=== PATIENT | female | born 1990 | race Caucasian/White ===

== ENCOUNTER 2017-05-16 03:13 | Inpatient (IN) ==
[2017-05-16] MEDS ORDERED: *HR* Labetalol 20 MG/4 ML SYRINGE IVP ONE ×2 (03:39→04:00)
[2017-05-16 03:50] LABS: Basophils % 0.6 %; Eosinophils # 0.1 K/mcL (0.0-0.6); Hematocrit 36.1 % (35.3-44.9); Immature Granulocytes % 0.7 % (0-4); Lymphocytes # 1.7 K/mcL (0.6-4.6); Lymphocytes % 23.3 %; Mean Corpuscular HGB Conc 33.2 g/dL (31.6-35.5); Mean Corpuscular Hemoglobin 29.4 pg (28.0-33.3); Mean Corpuscular Volume 88.5 fL (83.0-100.0); Monocytes # 0.7 K/mcL (0.0-1.3); Monocytes % 9.3 %; Neutrophils # 4.6 K/mcL (1.6-8.9); Platelet Count 225 K/mcL (140-400); Red Blood Count 4.08 M/mcL (3.82-4.97); Red Cell Distribution Width 14.1 % (11.5-14.5); Segmented Neutrophils % 65.1 %
[2017-05-16 04:03] LABS: Alanine Aminotransferase 12 Units/L (0-55); Aspartate Amino Transferase 14 Units/L (5-34); BUN/Creatinine Ratio 15 (6-26); Blood Urea Nitrogen 12 mg/dL (7-20); Lactate Dehydrogenase 171 Units/L (159-327); Uric Acid 4.3 mg/dL (2.6-6.0); eGFR For African Americans > 60 (> 60); eGFR For Non-African Americans > 60 (> 60)
[2017-05-16] MEDS ORDERED: Calcium Gluconate 1,000 MG/10 ML VIAL IVPB PRN (04:03)
[2017-05-16] MEDS ORDERED: Naloxone 0.4 MG/ML INJ IVP PRN ×2 (04:05→14:07)
[2017-05-16] MEDS ORDERED: Ondansetron 4 MG/2 ML VIAL IVP PRN ×2 (04:05→14:07)
[2017-05-16] MEDS ORDERED: *HR* Nalbuphine 20 MG/ML AMPUL IVP PRN (04:05)
[2017-05-16] MEDS ORDERED: Metoclopramide 10 MG/2 ML VIAL IVP PRN (04:05)
[2017-05-16] MEDS ORDERED: Famotidine 20 MG/2 ML VIAL IVP PRN (04:05)
[2017-05-16] MEDS ORDERED: Ringers Solution, Lactated 1,000 ML ONE ×2 (04:16→14:11)
--- NOTE | 2017-05-16 04:34 | OB/GYN History & Physical ---
Date of Encounter: 05/16/17 Time of Encounter: 04:32 Assessment and Plan (1) 36 weeks gestation of Current visit: Yes Status: Acute Admit for hypertension evaluation (2) Pre-eclampsia during in third trimester, antepartum Current visit: Yes Status: Acute Admit for induction of labor due to elevated blood pressures. (3) Oligohydramnios in marques in third trimester Current visit: Yes Status: Acute Admit for delivery. (4) Rubella non-immune status, antepartum Current visit: Yes Status: Acute Vaccinate History of Present Illness Chief complaint: Migraine, 36w5d HPI: Ms. Serna is a 27 year old female at 36w5d who was admitted due to elevated blood pressures and migraine headache. Patient reports positive movement, denies bleeding and leakage of fluid. Patient reports her headache started yesterday and she took Tylenol multiple times throughout the day. She states that the Tylenol would help for a while and then the headache would come right back. She states she woke up at 0100 with a migraine so she came in. Patient reports she had headache symptoms with her previous pregnancies but was not treated with medication or induced early. Blood Type O+ GBS Negative HbSAG Negative Rubella Non-Immune Varicella Immune T.Pallidum Negative Past Med Surg Social Fam HX - Past Medical History Source: patient Medical history: hypertension Psychiatric history: no psych history - Past Surgical History Surgical History: other (Dilatation and curettage, colposcopy) - Social History Smoking Status: Never smoker Smokeless Tobacco Status: No Alcohol use: none Drug use: none Current living situation: Home - Independent Activity Level: Independent ambulation Recent Out of Country Travel Within the Last 8 Weeks: No Exposure or Possible Exposure to Illness During Travel: No - Family History Mother Living Status: Still Living Hx Family Cardiac Disorders: No Hx Family Respiratory Disorders: No Hx Family Cancer: No Hx Family GI Disorders: No Hx Family Endocrine Disorder: No Hx Family Neuromuscular Disorders: No Hx Family Neurologic Disorders: No Hx Family HEENT Disorders: No Hx Family Autoimmune Disorders: No Obstetrical History - Pregnancies : 3 Para: 2 Term: 2 : 0 Ab's: 0 Livin Medications and Allergies Labetalol 200 mg PO BID 03/19/15 [History] Vit/FA 1 tab PO DAILY 03/19/15 [History] Docusate [Colace] 100 mg PO BID 30 Days capsule 03/20/15 [Rx] Ferrous Sulfate 325 mg PO DAILY 30 Days tablet 03/20/15 [Rx] Ibuprofen [Motrin] 600 mg PO TID PRN #60 tablet 03/20/15 [Rx] Labetalol [Trandate] 200 mg PO BID 30 Days tablet 03/20/15 [Rx] Pramoxine HCl [Dermarest Eczema] 56.7 gm TP QID PRN #120 ml 03/16/16 [Rx] cephALEXin [Keflex] 500 mg PO QID 7 Days capsule 03/16/16 [Rx] hydrOXYzine pamoate [HydrOXYzine Pamoate] 25 mg PO TID PRN 4 Days capsule 03/16 [Rx] predniSONE [PredniSONE] 5 mg PO DAILY 12 Days tablet 03/16/16 [Rx] GuaiFENesin ER [Mucinex] 600 mg PO BID #20 tbbp.12hr 06/14/16 [Rx] Loratadine/Pseudophed (12 HR) [Claritin D (12HR)] 1 each PO BID #30 tab.er.12h 06/14/16 [Rx] Ondansetron HCl [Zofran] 4 mg PO Q8H PRN #10 tablet 07/03/16 [Rx] Vit No.124/Iron/FA [ Vitamin Tablet] 1 each PO DAILY #90 tablet 09/30/16 [Rx] Promethazine [Phenergan] 25 mg PO Q6HR PRN #10 tablet 09/30/16 [Rx] Oseltamivir [Tamiflu] 75 mg PO BID 5 Days capsule 10/18/16 [Rx] Amoxicillin 875 mg PO BID #14 tablet 01/13/17 [Rx] 3 Allergy/AdvReac Type Severity Reaction Status Date / Time No Known Allergies Allergy Verified 05/16/17 04:01 Review of System OB All systems PM: reviewed and no additional remarkable complaints except as stated - Constitutional Constitutional ROS IM: no chills, no fever(s) - Neurological Nerological: headache(s) Exam - Constitutional Constitutional: well developed, well nourished, no acute distress - Neck Neck exam: full ROM - Lungs Respiratory exam: CTAB - Cardiovascular Cardiovascular exam: RRR, +S1, +S2 - Abdomen Abdomen: Present: bowel sounds normal, gravid, non tender - Extremities Extremities exam: full ROM, normal capillary refill, normal inspection Deep Tendon Reflex Grade: 2+ Normal - Vulva Vulva: bilateral: normal - Vagina Vagina: Present: normal moisture - Cervix Dilation: 1 Effacement: 50 Station: -3 - Uterus Uterus exam: Present: normal size - Anus/Rectum Anus/Rectum: Present: normal perianal skin - Comments Comments: FHR 135 bpm, moderate variability, +15x15 accels, no decels. Category I tracing. Results Result Diagrams: 05/16/17 03:35 05/16/17 03:35 All other labs normal.
[2017-05-16] MEDS ORDERED: Betamethasone Acet/SodPhos 6 MG/ML MDV IM SCH (04:45)
[2017-05-16] MEDS ORDERED: Oxytocin 20 units/ LR 1000 mL 20 UNIT/1,000 ML BAG IVC ONE (04:51)
[2017-05-16 04:55] LABS: Protein/Creatinine Ratio,Urine 0.2 mg/mg (0-0.20)
[2017-05-16] MEDS ORDERED: Oxytocin 20 units/ LR 1000 mL 20 UNIT/1,000 ML BAG IVC SCH ×2 (05:00→21:17)
[2017-05-16 05:04] LABS: Amphetamine Screen,Urine Negative ng/mL (Cutoff=1000); Barbiturate Screen,Urine Negative ng/mL (Cutoff=200); Benzodiazepines Screen,Urine Negative ng/mL (Cutoff=200); Cannabinoid Screen,Urine Negative ng/mL (Cutoff = 50); Cocaine Screen,Urine Negative ng/mL (Cutoff= 300); Opiate Screen,Urine Negative ng/mL (Cutoff=300); Phencyclidine Screen,Urine Negative ng/mL (Cutoff=25)
[2017-05-16] MEDS: Magnesium Sulfate 20 gm/500mL 20 GM/500 ML IV.SOLN IVC SCH ×2 (05:24→14:14)
--- NOTE | 2017-05-16 05:35 | Anesthesia Evaluation PreOp ---
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 Other Medical History: Denies Any Significant HX Anesthesia History: No Prior Anesthetic Complications (2 epidurals in past, one was okay and one unilateral epidural) Alcohol Use: none Drug use: none Medications and Allergies Labetalol 200 mg PO BID 03/19/15 [History] Vit/FA 1 tab PO DAILY 03/19/15 [History] Docusate [Colace] 100 mg PO BID 30 Days capsule 03/20/15 [Rx] Ferrous Sulfate 325 mg PO DAILY 30 Days tablet 03/20/15 [Rx] Ibuprofen [Motrin] 600 mg PO TID PRN #60 tablet 03/20/15 [Rx] Labetalol [Trandate] 200 mg PO BID 30 Days tablet 03/20/15 [Rx] Pramoxine HCl [Dermarest Eczema] 56.7 gm TP QID PRN #120 ml 03/16/16 [Rx] cephALEXin [Keflex] 500 mg PO QID 7 Days capsule 03/16/16 [Rx] hydrOXYzine pamoate [HydrOXYzine Pamoate] 25 mg PO TID PRN 4 Days capsule 03/16 [Rx] predniSONE [PredniSONE] 5 mg PO DAILY 12 Days tablet 03/16/16 [Rx] GuaiFENesin ER [Mucinex] 600 mg PO BID #20 tbbp.12hr 06/14/16 [Rx] Loratadine/Pseudophed (12 HR) [Claritin D (12HR)] 1 each PO BID #30 tab.er.12h 06/14/16 [Rx] Ondansetron HCl [Zofran] 4 mg PO Q8H PRN #10 tablet 07/03/16 [Rx] Vit No.124/Iron/FA [ Vitamin Tablet] 1 each PO DAILY #90 tablet 09/30/16 [Rx] Promethazine [Phenergan] 25 mg PO Q6HR PRN #10 tablet 09/30/16 [Rx] Oseltamivir [Tamiflu] 75 mg PO BID 5 Days capsule 10/18/16 [Rx] Amoxicillin 875 mg PO BID #14 tablet 01/13/17 [Rx] 3 Allergy/AdvReac Type Severity Reaction Status Date / Time No Known Allergies Allergy Verified 05/16/17 04:01 Anesthesia Results - Labs 05/16/17 03:35 05/16/17 03:35 Anesthesia Exam - HEENT Pupil (Motor): Pupils equal Mallampati: II Teeth: Normal Oral Opening: Greater than 3 - 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
[2017-05-16] MEDS ORDERED: Acetaminophen 325 MG TABLET PO PRN ×2 (07:29→21:17)
[2017-05-16] MEDS ORDERED: miSOPROStol 100 MCG TABLET PO ONE (08:00)
[2017-05-16] MEDS ORDERED: Methylergonovine 0.2 MG/ML AMPUL IM ONE (08:00)
--- NOTE | 2017-05-16 10:26 | OB Labor Progress Note ---
Date of Encounter: 05/16/17 Time of Encounter: 10:24 Labor Progress Note - Subjective Subjective: Pt states is feeling some contractions and they are starting to be uncomfortable - Vital Signs Vital Signs: 136/92 - Cervix Cervix: 1/50/-2 - Heart Tones Heart Tones: 135/moderate/+accels/-decels - Welby Welby: 3-4 - Interventions Interventions: Bills placed without incident - Plan Plan: Continue pitocin per policy. Magnesium for PIH Nubain and epidural as desired Anticipate
--- NOTE | 2017-05-16 12:22 | OB Labor Progress Note ---
Date of Encounter: 05/16/17 Time of Encounter: 12:20 Labor Progress Note - Subjective Subjective: Recent dose of nubain. Pt - Vital Signs Vital Signs: 107/56 - Cervix Cervix: 3/80/-2 - Heart Tones Heart Tones: 125/minimal/+accels/-decels.. - [place]: q2 - Interventions Interventions: AROM for clear fluid - Plan Plan: Continue pitocin per policy epidural as desired Continue magnesium and labetalol for PIH and BP mangement Anticipate .
[2017-05-16] MEDS ORDERED: *HR* FentaNYL (PF) 100 MCG/2 ML VIAL EP ONE (14:07)
[2017-05-16] MEDS ORDERED: EPHEDrine 50 MG/ML VIAL IVP PRN (14:07)
[2017-05-16] MEDS ORDERED: Bupivacaine-MPF 0.25% 10 ML VIAL EP ONE (14:07)
[2017-05-16] MEDS ORDERED: Epidural Premix (fent/bupiv) 110 ML EP SCH (14:15)
[2017-05-16] MEDS ORDERED: Bupivacaine-MPF 0.25% 10 ML VIAL ONE (14:20)
[2017-05-16] MEDS ORDERED: *HR* FentaNYL (PF) 100 MCG/2 ML VIAL ONE (14:21)
[2017-05-16] MEDS ORDERED: Epidural Premix (fent/bupiv) 110 ML EP ONE (14:24)
--- NOTE | 2017-05-16 15:07 | Anesthesia Procedures ---
Date of Encounter: 05/16/17 Time of Encounter: 14:25 Procedures: Anesthesia - Epidural/Spinal Patient ID/Chart reviewed: Yes Patient examined: Yes OB Eval: Gestational age: 36.5 OB Eval: : 3 OB Eval: Hx Para: 2 OB Eval: Dilated at (cm): 7 OB Eval: Contractions: Non-stressed pattern Consent Obtained: Yes Supplemental Oxygen: None/Room Air Site Prep: Aseptic Technique, Sterile prep and drape, Povidone-Iodine 1% Patient position: upright Local Anesthetic: Lidocaine 1% Amount of Local Anesthetic used: 3 Touhy Needle Gauge: 18 Touhy Needle Depth (cm): 6 Catheter Depth at Skin (cm): 15 Test Dose (1.5% Lido + Epi): Volume given (mls): 3 Test Dose Result: Negative Loading Dose: 0.25% Marcaine (mls): 10 Loading Dose: Fentanyl (mcg): 100 Loading Dose Administered: Thru Catheter Infusion Med: 0.125% Bupivacaine w/ 2 mcg/ml Fentanyl Infusion Rate (mls/hr): [address]: Tegaderm, Tape Interspace Used: L3-L4 Loss of Resistance (JASMYNE): Yes Blood: No CSF: No Paresthesia: No Procedure: ROLLY placed 1st pass in upright position without any immediate noted complications. VSS throughout. FHT stable throughout. Vitals + FHT's: 1426 BP 136/87 P 90 R 18 1455 BP 133/79 P 81 R 16 FHT 120s
--- NOTE | 2017-05-16 15:54 | OB/GYN Procedure Note ---
Delivery - Delivery Date: 05/16/17 Provider: Pat Marroquin (See addendum /Delano Kevin MD,FACOG) Intrapartum events: none Delivery induction: AROM, oxytocin, tucker Delivery monitor: external FHT, external uterine Anesthesia: epidural Estimated Blood Loss: 450 - Infant (s) Infant A Delivery Date: 05/16/17 Delivery Time: 15:10 Presentation: vertex Position: OA Route of delivery: Gender: Female Viability: Viable Weight Gram: 2.505 kg at 1 minute: 8 at 5 mins: 9 Shoulder Dystocia: not encountered Specimens collected: cord blood Placenta: spontaneous Cord: 3 umbilical vessels - Repair Episiotomy: none Laceration Description: Perineal - 1st Degree - Complications Delivery complications: none Delivery comments: Induction of labor for PIH with Pitocin. CNM called to room for prolonged bradycardia, vaginal exam shows patient complete. Dr. Kevin called to attend delivery Directed maternal bearing down efforts to of a liveborn girl. Vertex delivered OA, shoulders and body rapidly followed. No nuchal cord or shoulder dystocia encountered. Vigorous placed on maternal abdomen for stimulation, delayed cord clamping, cord cut by father of baby. Placenta delivered spontaneously, intact upon inspection. Uterine atony noted after delivery of placenta. Pitocin bolus initiated, called for hemorrhage kit, Bimanual massage performed. Cytotec 800 g rectally. Slow firming of fundus obtained until firm at u-3. First degree perineal laceration noted hemostatic and left unrepaired. EBL 450. - Disposition Mom disposition: stable in LDR Jay disposition: stable in LDR - Comments Comments: I was called by CNM to attend delivery. During the second stage of labor, significant bradycardia had occurred. I arrived in less than 1 minute. At that time, the had been delivered and placed on the mother's abdomen. With the situation being stable and no further intervention needed, I left the delivery suite.
[2017-05-16] MEDS ORDERED: Benzocaine/Menthol 56 GM AEROSOL SPRAY TP PRN (21:17)
[2017-05-16] MEDS ORDERED: Measles/Mumps/Rubella Vacc 0.5 ML VIAL SQ PRN (21:17)
[2017-05-16] MEDS ORDERED: Lanolin 7 G OINT...G. TP PRN (21:17)
[2017-05-16] MEDS: Ibuprofen 600 MG TABLET PO PRN (21:50)
[2017-05-17] MEDS: Magnesium Sulfate 20 gm/500mL 20 GM/500 ML IV.SOLN IVC SCH ×2 (02:27→13:02)
[2017-05-17 06:22] LABS: Basophils % 0.1 %; Eosinophils % 0.1 %; Hematocrit 30.5 % (35.3-44.9); Immature Granulocytes % 0.5 % (0-4); Lymphocytes # 1.1 K/mcL (0.6-4.6); Lymphocytes % 11.8 %; Mean Corpuscular HGB Conc 33.1 g/dL (31.6-35.5); Mean Corpuscular Hemoglobin 28.9 pg (28.0-33.3); Mean Corpuscular Volume 87.4 fL (83.0-100.0); Mean Platelet Volume 10.9 fL (9.4-12.4); Monocytes # 0.6 K/mcL (0.0-1.3); Monocytes % 6.2 %; Neutrophils # 7.8 K/mcL (1.6-8.9); Platelet Count 204 K/mcL (140-400); Red Blood Count 3.49 M/mcL (3.82-4.97); Red Cell Distribution Width 14.8 % (11.5-14.5); Segmented Neutrophils % 81.3 %
[2017-05-17 06:23] LABS: Hemoglobin 10.1 g/dL (11.5-15.4)
[2017-05-17 06:38] LABS: Alanine Aminotransferase 10 Units/L (0-55); Aspartate Amino Transferase 15 Units/L (5-34); BUN/Creatinine Ratio 11 (6-26); Blood Urea Nitrogen 7 mg/dL (7-20); Lactate Dehydrogenase 245 Units/L (159-327); Uric Acid 4.1 mg/dL (2.6-6.0); eGFR For African Americans > 60 (> 60); eGFR For Non-African Americans > 60 (> 60)
[2017-05-17] MEDS ORDERED: Prenatal Vit/FA 1 EACH TABLET PO SCH (09:00)
--- NOTE | 2017-05-17 13:50 | OB/GYN Progress Note ---
Date of Encounter: 05/17/17 Time of Encounter: 09:00 - Assessment and Plan (1) Pre-eclampsia during in third trimester, antepartum Current Visit: Yes Status: Acute BP normal . Pt reports WELCH has resolved but she continues to have blurry vision. UOP adequate. Plan to continue magnesium for full 24 hours . Will D/C magnesium this afternoon. Continue to monitor blood pressure closely. (2) Vaginal delivery Current Visit: No Status: Resolved Pt meeting milestones. Await spontaneous void once tucker removed. Subjective - Subjective Interval history: Pt reports feeling well this am. She states she had a headache earlier but it resoved with medication. She admits to some blurry vision but feels this may be related to being tired. 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 Patient reports: appetite normal, pain well controlled [place]: doing well Objective - Latest Vital Signs Latest vital signs: Vital Signs Temp Pulse Resp BP Pulse Ox 05/17/17 12:45 84 16 123/85 05/17/17 11:45 90 16 131/84 05/17/17 10:50 86 16 120/81 05/17/17 09:45 88 16 126/79 05/17/17 09:00 97 16 138/82 05/17/17 07:45 98.5 F 97 16 126/74 98 05/17/17 06:45 90 14 127/77 05/17/17 05:45 76 16 133/77 05/17/17 04:45 91 16 134/82 05/17/17 03:45 86 14 133/82 05/17/17 02:45 97.8 F 72 14 137/85 96 05/17/17 01:45 97 14 125/74 05/17/17 00:45 92 14 124/73 05/16/17 23:50 92 15 115/74 05/16/17 22:45 88 14 114/79 05/16/17 21:50 92 14 121/80 05/16/17 20:45 89 14 127/84 05/16/17 19:50 16 05/16/17 19:45 87 16 119/71 05/16/17 18:45 98.4 F 97 14 120/72 98 05/16/17 17:45 14 05/16/17 16:59 88 14 116/67 05/16/17 16:00 84 14 121/61 Intake and Output 05/16/17 05/17/17 05/17/17 23:59 07:59 15:59 Intake Total 700 / 700 500 / 500 Output Total 1490 / 1490 1615 / 1615 820 / 820 Balance -1490 / -1490 -915 / -915 -320 / -320 Intake: IV Fluids 500 / 500 500 / 500 Magnesium Sulfate Premix 20 gm/ 500 / 500 500 / 500 500mL 20 gm In 500 ml @ 2 GM/HR 50 mls/hr IVC .Q10H JAMES Rx#: [id number] Oral 200 / 200 Output: Urine 1490 / 1490 1615 / 1615 820 / 820 Other: Meal Breakfast Percent of Meal Consumed 60% Weight 114 kg Patient Weight 05/17/17 23:59 Weight 114 kg - Exam Lungs: bilateral: normal Chest: Normal S1, Normal S2 Extremities: Present: edema (1+ bilaterally) Abdomen: Present: soft Uterus: Present: firm Comments: reflexes normal - Labs Labs: Laboratory Results - last 24 hr 05/17/17 05/17/17 05:47 05:47 WBC 9.6 RBC 3.49 L Hgb 10.1 L D Hct 30.5 L MCV 87.4 MCH 28.9 MCHC 33.1 RDW 14.8 H Plt Count 204 MPV 10.9 Immature Gran % 0.5 Seg Neutrophils % 81.3 Lymphocytes % 11.8 Monocytes % 6.2 Eosinophils % 0.1 Basophils % 0.1 Neutrophils # 7.8 Lymphocytes # 1.1 Monocytes # 0.6 Eosinophils # 0.0 Basophils # 0.0 BUN 7 Creatinine 0.66 Est GFR ( Amer) > 60 Est GFR (Non-Af Amer) > 60 BUN/Creatinine Ratio 11 Uric Acid 4.1 AST 15 ALT 10 Lactate Dehydrogenase 245
[2017-05-17] MEDS: Ibuprofen 600 MG TABLET PO PRN (18:52)
--- NOTE | 2017-05-18 09:16 | Discharge Summary ---
Date of Encounter: 05/18/17 Time of Encounter: 09:04 - Discharge Diagnosis (1) 36 weeks gestation of Priority: Primary Status: Resolved (2) Oligohydramnios in marques in third trimester Priority: Primary Status: Resolved (3) Pre-eclampsia during in third trimester, antepartum Priority: Primary Status: Resolved (4) Rubella non-immune status, antepartum Priority: Primary Status: Resolved (5) anemia Priority: Primary Status: Acute - Discharge Medications Prescriptions: Ibuprofen [Motrin] 600 mg PO Q6HR PRN #60 tablet PRN Reason: Cramping Docusate [Colace] 100 mg PO BID #30 capsule Ferrous Sulfate 325 mg PO DAILY #30 tablet Home Medications: Vit/FA 1 tab PO DAILY 03/19/15 [History] Ranitidine HCl 05/16/17 [History] Docusate [Colace] 100 mg PO BID #30 capsule 05/18/17 [Rx] Ferrous Sulfate 325 mg PO DAILY #30 tablet 05/18/17 [Rx] Ibuprofen [Motrin] 600 mg PO Q6HR PRN #60 tablet 05/18/17 [Rx] Allergies/Adverse Reactions: 3 Allergy/AdvReac Type Severity Reaction Status Date / Time No Known Allergies Allergy Verified 05/16/17 04:01 Data Procedures and tests throughout hospitalization: Laboratory Tests 05/16/17 05/16/17 05/16/17 03:35 03:35 04:00 WBC 7.1 RBC 4.08 Hgb 12.0 Hct 36.1 MCV 88.5 MCH 29.4 MCHC 33.2 RDW 14.1 Plt Count 225 MPV 11.0 Immature Gran % 0.7 Seg Neutrophils % 65.1 Lymphocytes % 23.3 Monocytes % 9.3 Eosinophils % 1.0 Basophils % 0.6 Neutrophils # 4.6 Lymphocytes # 1.7 Monocytes # 0.7 Eosinophils # 0.1 Basophils # 0.0 BUN 12 Creatinine 0.78 Est GFR ( Amer) > 60 Est GFR (Non-Af Amer) > 60 BUN/Creatinine Ratio 15 Uric Acid 4.3 AST 14 ALT 12 Lactate Dehydrogenase 171 Urine Creatinine 46 Protein/Creatinin Ratio 0.20 Urine Total Protein 9 Urine Opiates Screen Ur Barbiturates Screen Ur Phencyclidine Scrn Ur Amphetamines Screen U Benzodiazepines Scrn Urine Cocaine Screen U Marijuana (THC) Screen 05/16/17 05/17/17 05/17/17 04:42 05:47 05:47 WBC 9.6 RBC 3.49 L Hgb 10.1 L D Hct 30.5 L MCV 87.4 MCH 28.9 MCHC 33.1 RDW 14.8 H Plt Count 204 MPV 10.9 Immature Gran % 0.5 Seg Neutrophils % 81.3 Lymphocytes % 11.8 Monocytes % 6.2 Eosinophils % 0.1 Basophils % 0.1 Neutrophils # 7.8 Lymphocytes # 1.1 Monocytes # 0.6 Eosinophils # 0.0 Basophils # 0.0 BUN 7 Creatinine 0.66 Est GFR ( Amer) > 60 Est GFR (Non-Af Amer) > 60 BUN/Creatinine Ratio 11 Uric Acid 4.1 AST 15 ALT 10 Lactate Dehydrogenase 245 Urine Creatinine Protein/Creatinin Ratio Urine Total Protein Urine Opiates Screen Negative Ur Barbiturates Screen Negative Ur Phencyclidine Scrn Negative Ur Amphetamines Screen Negative U Benzodiazepines Scrn Negative Urine Cocaine Screen Negative U Marijuana (THC) Screen Negative Date of admission: 05/16/17 03:13 Primary care physician: Gomez Cooney MD Consults: 05/16/17 21:17 Consult to Parimutuel Clerk [CONS] Routine Comment: Vaginal delivery, consult needed Discharging clinician: Leonardo Higgins Anticipated date of discharge: 05/18/17 - Patient Status Disposition: Home, Self-Care Condition: Good Functional capacity at discharge: independent ambulation Overall status at discharge: patient is progressing back to baseline - Discharge Instructions Instructions: Preeclampsia and Eclampsia (DC), Anemia (GEN) - Diet and Activity Activity: resume usual activities as tolerated Diet: regular diet Hospital Course Reason for admission: IUP - , pre-eclampsia Delivery: Episiotomy: none Laceration: 1st degree Other procedures: none complications: perineal laceration, uterine atony Discharge diagnosis: delivery [place] baby: female Hospital course: Ms. Serna is a 27 year old female that presented at 36w5d who was admitted due to elevated blood pressures and migraine headache. Patient reported positive movement, denied bleeding and leakage of fluid. Patient reported her headache started the day before admission and she took Tylenol multiple times throughout the day. She states that the Tylenol would help for a while and then the headache would come right back. She states she woke up at 0100 with a migraine so she came in. Patient reported she had headache symptoms with her previous pregnancies but was not treated with medication or induced early. Induction of labor for PIH with Pitocin. CNM called to room for prolonged bradycardia, vaginal exam shows patient complete. Dr. Kevin called to attend delivery Directed maternal bearing down efforts to of a liveborn girl. Vertex delivered OA, shoulders and body rapidly followed. No nuchal cord or shoulder dystocia encountered. Vigorous placed on maternal abdomen for stimulation, delayed cord clamping, cord cut by father of baby. Placenta delivered spontaneously, intact upon inspection. Uterine atony noted after delivery of placenta. Pitocin bolus initiated, called for hemorrhage kit, Bimanual massage performed. Cytotec 800 g rectally. Slow firming of fundus obtained until firm at u-3. First degree perineal laceration noted hemostatic and left unrepaired. EBL 450. The attending was called by CNM to attend delivery. During the second stage of labor, significant bradycardia had occurred. The attending arrived in less than 1 minute. At that time, the had been delivered and placed on the mother's abdomen. With the situation being stable and no further intervention needed, the attending left the delivery suite. After the delivery, the patient reported headaches but it was soon resolved with medication. She was still admitting to blurry vision, but her blood pressure was normotensive. When seen today, patient denies any headaches or blurry vision. Her blood pressure is within normal range. She says she is in good mood and the baby is doing well. She was breast-feeding the baby intially, but is currently bottle feeding. She says her abdominal discomfort is well controlled and says it is a 1/10 on the pain sale. She admits to minor vaginal bleeding and says it has improved since the delivery. She denies any chest pain, shortness of breath , fever, chills, nausea, or vomiting. She has a follow-up appointment with Pat Marroquin on 06/17/17. - Delivery Date: 05/16/17 Provider: Pat Marroquin (See addendum /Delano Kevin MD,FACOG) Intrapartum events: none Delivery induction: AROM, oxytocin, tucker Delivery monitor: external FHT, external uterine Anesthesia: epidural Estimated Blood Loss: 450 - (s) Infant A Delivery Date: 05/16/17 Infant Delivery Time: 15:10 Presentation: vertex Position: OA Route of delivery: Gender: Female Viability: Viable Weight Gram: 2.505 kg at 1 minute: 8 at 5 mins: 9 Shoulder Dystocia: not encountered Specimens collected: cord blood Placenta: spontaneous Cord: 3 umbilical vessels - Repair Episiotomy: none Laceration Description: Perineal - 1st Degree - Complications Delivery complications: none Delivery comments: Time Attestation: Total time spent providing and/or coordinating discharge services: Time Spent: Less than 30 minutes Exam - Constitutional Vitals: Temp Pulse Resp BP Pulse Ox 98.4 F 86 16 137/85 97 05/18/17 08:39 05/18/17 08:39 05/18/17 08:39 05/18/17 08:39 05/18/17 04:11 General appearance IM: A&O X 3, pleasant, no acute distress, answers questions appropriately - Respiratory Respiratory exam: Present: CTAB - Cardiovascular Cardiovascular exam IM: Present: RRR, +S1, +S2 - GI/Abdominal GI/Abdominal exam IM: normal bowel sounds, soft, tenderness (Minor tenderness in lower quadrants with deep palpation. ) - Uterine Tone: Firm - Extremities Exam Extremities exam IM: Present: full ROM, normal capillary refill, normal inspection, radial pulses palpable and symmetrical. Absent: calf tenderness, cyanotic, pedal edema Additional comments: Pedal pulses intact and symmetrical bilateral. - Neurological Exam Neurological exam: reflexes normal, no focal deficits - Attending Attestation I examined this patient and my medical decision-making was reviewed with the Resident Physician. I agree with the documented findings, disposition and treatment plan as described except to the extent set forth below. Marianela Rodrigues DO
[2017-05-18 11:36] VITALS: BP 156/80
== END 2017-05-18 12:45 | disposition home or self-care (01) | DRG 560 ==
LOC: 1NENULAB → OBSVTOIN 03:13 → 1NENUOBS 18:44
PROVIDERS: ADMIT Obstetrics & Gynecology; ATTEND Obstetrics & Gynecology

== ENCOUNTER 2019-04-27 03:59 | Observation (INO) ==
[2019-04-27 05:00] LABS: Basophils % 0.3 %; Eosinophils # 0.4 K/mcL (0.0-0.6); Eosinophils % 4.8 %; Hematocrit 38.2 % (35.3-44.9); Hemoglobin 12.4 g/dL (11.5-15.4); Immature Granulocytes % 0.4 % (0-4); Lymphocytes # 1.4 K/mcL (0.6-4.6); Lymphocytes % 18.6 %; Mean Corpuscular HGB Conc 32.5 g/dL (31.6-35.5); Mean Corpuscular Hemoglobin 28.4 pg (28.0-33.3); Mean Corpuscular Volume 87.6 fL (83.0-100.0); Mean Platelet Volume 11.6 fL (9.4-12.4); Monocytes # 0.6 K/mcL (0.0-1.3); Monocytes % 7.7 %; Neutrophils # 4.9 K/mcL (1.6-8.9); Platelet Count 239 K/mcL (140-400); Red Blood Count 4.36 M/mcL (3.82-4.97); Red Cell Distribution Width 13.9 % (11.5-14.5); Segmented Neutrophils % 68.2 %; White Blood Count 7.3 K/mcL (4.3-11.1)
[2019-04-27] MEDS ORDERED: 0.9 % Sodium Chloride 1,000 ML IVC ONE (05:05)
[2019-04-27 05:10] LABS: Bilirubin,Urine Negative (Negative); Blood,Urine Negative (Negative); Color,Urine Yellow (Yellow); Glucose,Urine (UA) Normal (Normal); Ketones,Urine Negative (Negative); Leukocyte Esterase,Urine Negative (Negative); Nitrite,Urine Negative (Negative); PH,Urine 6.5 pH Units (5.0-8.0); Protein,Urine Negative (Neg-Trace); Specific Gravity,Urine 1.008 (1.010-1.025); Urobilinogen,Urine Normal (Normal)
[2019-04-27 05:13] LABS: Bacteria,Urine Moderate per hpf (None-Few); Hyaline Casts,Urine None Seen per lpf (None-Few); RBC,Urine 0-3 per hpf (0-3); Squamous Epithelial Cell,Urine Many per lpf (None-Few)
[2019-04-27 05:14] LABS: Clarity,Urine Slightly Hazy (Clear)
[2019-04-27 05:17] LABS: Alanine Aminotransferase 14 Units/L (7-52); Albumin 3.8 g/dL (3.5-5.7); Albumin/Globulin Ratio 1.3 (1.1-2.2); Alkaline Phosphatase 97 Units/L (34-104); Aspartate Amino Transferase 12 Units/L (13-39); BUN/Creatinine Ratio 16 (6-26); Bilirubin,Total 0.3 mg/dL (0.3-1.0); Blood Urea Nitrogen 10 mg/dL (6-20); Calcium 8.8 mg/dL (8.6-10.3); Carbon Dioxide 19 mEq/L (23-29); Chloride 108 mEq/L (98-107); Glucose 98 mg/dL (70-105); Osmolality,Calculated 281 (280-300); Potassium 3.2 mEq/L (3.5-5.1); Sodium 136 mEq/L (136-145); Total Protein 6.8 g/dL (6.4-8.9); eGFR For African Americans > 60 (> 60); eGFR For Non-African Americans > 60 (> 60)
[2019-04-27 05:18] LABS: Troponin I < 0.03 ng/mL (< 0.04)
[2019-04-27 05:25] LABS: Magnesium 1.9 mg/dL (1.6-2.6)
[2019-04-27] MEDS ORDERED: Isovue-370 500 ML BOTTLE IVP ONE (05:32)
[2019-04-27 05:33] LABS: Thyroid Stimulating Hormone 5.963 mcIU/mL (0.340-5.600)
[2019-04-27] MEDS ORDERED: cefTRIAXone 1,000 MG in 0.9 % Sodium Chloride Mini Bag 100 ML IVPB ONE (07:49)
[2019-04-27] MEDS ORDERED: Azithromycin 500 MG in 0.9 % Sodium Chloride 250 ML IVPB ONE (07:49)
[2019-04-27] MEDS ORDERED: Ondansetron 4 MG/2 ML VIAL IVP PRN (08:56)
[2019-04-27] MEDS ORDERED: Naloxone 0.4 MG/ML INJ IVP PRN (08:56)
[2019-04-27] MEDS ORDERED: 0.9 % Sodium Chloride 1,000 ML IVC SCH (12:30)
[2019-04-27] MEDS: Acetaminophen 325 MG TABLET PO PRN ×2 (13:29→19:49)
[2019-04-28 01:28] LABS: BUN/Creatinine Ratio 10 (6-26); Blood Urea Nitrogen 6 mg/dL (6-20); Calcium 8.6 mg/dL (8.6-10.3); Carbon Dioxide 22 mEq/L (23-29); Chloride 109 mEq/L (98-107); Chol/HDL Ratio 3.7 (0-4.9); Cholesterol 184 mg/dL (< 200); Glucose 93 mg/dL (70-105); HDL Cholesterol 50 mg/dL (40-59); LDL Cholesterol,Calculated 121 mg/dL (0-99); Osmolality,Calculated 281 (280-300); Potassium 3.2 mEq/L (3.5-5.1); Sodium 137 mEq/L (136-145); Triglycerides 64 mg/dL (< 150); eGFR For African Americans > 60 (> 60); eGFR For Non-African Americans > 60 (> 60)
[2019-04-28] MEDS ORDERED: cefTRIAXone 1,000 MG in Water for inj. (sterile) 10 ML IVP SCH (09:00)
[2019-04-28 11:14] VITALS: BP 140/96
== END 2019-04-28 13:37 | disposition home or self-care (01) ==
LOC: EMEROOARM 03:59 → 3BNU 03:59 → SUATTDRO 08:45 → 3BNU 09:42
PROVIDERS: ADMIT Internal Medicine; ATTEND Family Medicine

== ENCOUNTER 2019-12-05 15:56 | Inpatient (IN) ==
[~2019-12-05 15:56] MED LIST: Azithromycin 500 MG in 0.9 % Sodium Chloride 250 ML IVPB ONE; CeFAZolin 2,000 MG/50 ML BAG IVPB ONE; Famotidine 20 MG/2 ML VIAL IVP ONE; Metoclopramide 10 MG/2 ML VIAL IVP ONE; Ringers Solution, Lactated 1,000 ML IVC SCH
[2019-12-05] MEDS ORDERED: *HR* Promethazine 25 MG/ML VIAL IVP PRN (16:09)
[2019-12-05] MEDS ORDERED: *HR* HYDROmorphone (PF) 1 MG/ML SYRINGE IVP PRN (16:09)
[2019-12-05] MEDS ORDERED: *HR* Labetalol 20 MG/4 ML SYRINGE IVP PRN (16:09)
[2019-12-05] MEDS ORDERED: Ondansetron 4 MG/2 ML VIAL IVP PRN ×2 (16:09→20:06)
[2019-12-05] MEDS ORDERED: *HR* HYDROMORPHONE 2 MG/ML VIAL ONE (16:14)
[2019-12-05] MEDS ORDERED: *HR* Oxytocin 10 UNIT/ML VIAL IM ONE (16:14)
[2019-12-05] MEDS ORDERED: Ondansetron 4 MG/2 ML VIAL ONE (16:14)
[2019-12-05] MEDS ORDERED: *HR* FentaNYL (PF) 100 MCG/2 ML VIAL ONE ×2 (16:14)
[2019-12-05] MEDS ORDERED: Dexamethasone 4 MG/ML VIAL ONE (16:14)
[2019-12-05] MEDS ORDERED: *HR* Succinylcholine 200 MG/10 ML VIAL IVP ONE (16:14)
[2019-12-05] MEDS ORDERED: Lidocaine -MPF 2% 5 ML VIAL ONE (16:14)
[2019-12-05] MEDS ORDERED: *HR* Propofol 200 MG/20 ML VIAL IVP ONE ×2 (16:14)
[2019-12-05 16:29] LABS: Basophils % 0.4 %; Eosinophils # 0.1 K/mcL (0.0-0.6); Eosinophils % 1.1 %; Hematocrit 30.9 % (35.3-44.9); Hemoglobin 10.1 g/dL (11.5-15.4); Immature Granulocytes % 0.5 % (0-4); Lymphocytes # 1.4 K/mcL (0.6-4.6); Lymphocytes % 16.3 %; Mean Corpuscular HGB Conc 32.7 g/dL (31.6-35.5); Mean Corpuscular Hemoglobin 29.4 pg (28.0-33.3); Mean Corpuscular Volume 90.1 fL (83.0-100.0); Mean Platelet Volume 10.2 fL (9.4-12.4); Monocytes # 0.8 K/mcL (0.0-1.3); Monocytes % 9.1 %; Neutrophils # 6.1 K/mcL (1.6-8.9); Platelet Count 223 K/mcL (140-400); Red Blood Count 3.43 M/mcL (3.82-4.97); Red Cell Distribution Width 13.6 % (11.5-14.5); Segmented Neutrophils % 72.6 %; White Blood Count 8.3 K/mcL (4.3-11.1)
[2019-12-05 20:01] LABS: Basophils % 0.2 %; Eosinophils % 0.1 %; Immature Granulocytes % 0.6 % (0-4); Lymphocytes # 0.6 K/mcL (0.6-4.6); Lymphocytes % 4.9 %; Mean Corpuscular HGB Conc 32.5 g/dL (31.6-35.5); Mean Corpuscular Hemoglobin 29.1 pg (28.0-33.3); Mean Corpuscular Volume 89.4 fL (83.0-100.0); Mean Platelet Volume 10.8 fL (9.4-12.4); Monocytes # 0.4 K/mcL (0.0-1.3); Monocytes % 3.1 %; Neutrophils # 10.6 K/mcL (1.6-8.9); Platelet Count 223 K/mcL (140-400); Red Blood Count 3.58 M/mcL (3.82-4.97); Red Cell Distribution Width 13.5 % (11.5-14.5); Segmented Neutrophils % 91.1 %
[2019-12-05 20:02] LABS: Hemoglobin 10.4 g/dL (11.5-15.4); White Blood Count 11.6 K/mcL (4.3-11.1)
[2019-12-05] MEDS ORDERED: Sennosides 8.6 MG TABLET PO PRN (20:06)
[2019-12-05] MEDS ORDERED: Ringers Solution, Lactated 1,000 ML IVC SCH (20:06)
[2019-12-05] MEDS ORDERED: Measles/Mumps/Rubella Vacc 0.5 ML VIAL SQ ONE (20:06)
[2019-12-05] MEDS ORDERED: Simethicone 80 MG TAB.CHEW PO PRN (20:06)
[2019-12-05] MEDS ORDERED: Oxytocin 20 units/ LR 1000 mL 20 UNIT/1,000 ML BAG IVC SCH (20:06)
[2019-12-05] MEDS ORDERED: Metoclopramide 10 MG/2 ML VIAL IVP PRN (20:06)
[2019-12-05] MEDS: Ibuprofen 600 MG TABLET PO PRN (21:39)
[2019-12-05] MEDS: *HR* HYDROmorphone 20 MG/20 ML PCA IVC PRN (21:42)
[2019-12-05] MEDS: metroNIDAZOLE 500 MG TABLET PO SCH (23:11)
[2019-12-05] MEDS: ceFAZolin 2,000 MG in 0.9 % Sodium Chloride 100 ML IVPB SCH (23:12)
[2019-12-06] MEDS ORDERED: ceFAZolin 2,000 MG in 0.9 % Sodium Chloride 100 ML IVPB SCH
[2019-12-06 08:07] LABS: Basophils % 0.1 %; Eosinophils % 0.3 %; Hematocrit 25.8 % (35.3-44.9); Immature Granulocytes % 0.4 % (0-4); Lymphocytes # 1.1 K/mcL (0.6-4.6); Lymphocytes % 15.3 %; Mean Corpuscular HGB Conc 32.6 g/dL (31.6-35.5); Mean Corpuscular Hemoglobin 29.2 pg (28.0-33.3); Mean Corpuscular Volume 89.6 fL (83.0-100.0); Mean Platelet Volume 11.2 fL (9.4-12.4); Monocytes # 0.6 K/mcL (0.0-1.3); Monocytes % 8.6 %; Neutrophils # 5.5 K/mcL (1.6-8.9); Platelet Count 201 K/mcL (140-400); Red Blood Count 2.88 M/mcL (3.82-4.97); Red Cell Distribution Width 13.9 % (11.5-14.5); Segmented Neutrophils % 75.3 %; White Blood Count 7.3 K/mcL (4.3-11.1)
[2019-12-06] MEDS: ceFAZolin 2,000 MG in 0.9 % Sodium Chloride 100 ML IVPB SCH ×2 (08:09→15:37)
[2019-12-06] MEDS: Prenatal Vit/FA 1 EACH TABLET PO SCH (08:10)
[2019-12-06] MEDS: metroNIDAZOLE 500 MG TABLET PO SCH ×3 (08:11→21:44)
[2019-12-06] MEDS: Ibuprofen 600 MG TABLET PO PRN ×2 (08:11→21:44)
[2019-12-06] MEDS ORDERED: *HR* OxyCODONE Immed Rel 5 MG TABLET PO PRN (08:13)
[2019-12-06 08:31] LABS: Hemoglobin 8.4 g/dL (11.5-15.4)
[2019-12-06] MEDS: *HR* HYDROmorphone 20 MG/20 ML PCA IVC PRN (09:03)
[2019-12-06] MEDS: *HR* OxyCODONE/APAP 5/325 TABLET PO PRN (11:20)
[2019-12-07] MEDS: *HR* OxyCODONE/APAP 5/325 TABLET PO PRN ×2 (03:15→09:52)
[2019-12-07 08:08] VITALS: BP 131/86
[2019-12-07] MEDS: metroNIDAZOLE 500 MG TABLET PO SCH (09:25)
[2019-12-07] MEDS: Prenatal Vit/FA 1 EACH TABLET PO SCH (09:25)
== END 2019-12-07 12:30 | disposition home or self-care (01) | DRG 540 ==
LOC: 1NENULAB → 1NENUOBS 19:50
PROVIDERS: ADMIT Obstetrics & Gynecology; ATTEND Advanced Practice Midwife

== ENCOUNTER 2021-09-20 21:57 | Observation (INO) ==
[2021-09-20 22:46] LABS: Bilirubin,Urine Negative (Negative); Blood,Urine Negative (Negative); Calcium Oxalate Crystals,Urine Present per hpf; Clarity,Urine Turbid (Clear); Color,Urine Yellow (Yellow); Glucose,Urine (UA) Normal (Normal); Ketones,Urine Trace mg/dL (Negative); Leukocyte Esterase,Urine Negative (Negative); Mucus,Urine Many per lpf (None-Few); Nitrite,Urine Negative (Negative); PH,Urine 5.5 pH Units (5.0-8.0); Protein,Urine 70 mg/dL (Neg-Trace); RBC,Urine 0-3 per hpf (0-3); Specific Gravity,Urine > 1.030 (1.010-1.025); Squamous Epithelial Cell,Urine Moderate per hpf (None-Few)
[2021-09-20 22:55] LABS: Basophils % 0.3 %; Eosinophils # 0.1 K/mcL (0.0-0.6); Hematocrit 35.3 % (35.3-44.9); Hemoglobin 11.8 g/dL (11.5-15.4); Immature Granulocytes % 0.7 % (0-4); Lymphocytes # 1.3 K/mcL (0.6-4.6); Lymphocytes % 13.6 %; Mean Corpuscular HGB Conc 33.4 g/dL (31.6-35.5); Mean Corpuscular Hemoglobin 30.5 pg (28.0-33.3); Mean Corpuscular Volume 91.2 fL (83.0-100.0); Monocytes # 0.7 K/mcL (0.0-1.3); Monocytes % 7.4 %; Neutrophils # 7.4 K/mcL (1.6-8.9); Platelet Count 232 K/mcL (140-400); Red Blood Count 3.87 M/mcL (3.82-4.97); Red Cell Distribution Width 13.7 % (11.5-14.5); White Blood Count 9.6 K/mcL (4.3-11.1)
[2021-09-20 22:57] LABS: Protein/Creatinine Ratio,Urine 0.16 mg/mg (0.00-0.20)
[2021-09-20 23:07] LABS: Alanine Aminotransferase 10 Units/L (7-52); Aspartate Amino Transferase 10 Units/L (13-39); Blood Urea Nitrogen 10 mg/dL (6-20); Lactate Dehydrogenase 113 Units/L (140-271); Uric Acid 4.1 mg/dL (2.3-7.6)
[2021-09-21 00:11] LABS: Candida DNA Not Detected (Not Detect); Gardnerella DNA DETECTED (Not Detect); Trichomonas DNA Not Detected (Not Detect)
== END 2021-09-20 23:48 | disposition home or self-care (01) ==
LOC: 1NENULAB
PROVIDERS: ADMIT Advanced Practice Midwife; ATTEND Advanced Practice Midwife

== ENCOUNTER 2021-10-26 01:29 | Observation (INO) ==
[2021-10-26 02:54] LABS: Basophils # 0.1 K/mcL (0.0-0.2); Basophils % 0.6 %; Eosinophils # 0.1 K/mcL (0.0-0.6); Eosinophils % 1.1 %; Hematocrit 41.4 % (35.3-44.9); Immature Granulocytes % 0.4 % (0-4); Lymphocytes # 1.7 K/mcL (0.6-4.6); Lymphocytes % 20.6 %; Mean Corpuscular HGB Conc 33.8 g/dL (31.6-35.5); Mean Corpuscular Hemoglobin 30.7 pg (28.0-33.3); Mean Corpuscular Volume 90.8 fL (83.0-100.0); Mean Platelet Volume 12.9 fL (9.4-12.4); Monocytes # 0.5 K/mcL (0.0-1.3); Monocytes % 6.4 %; Neutrophils # 5.9 K/mcL (1.6-8.9); Platelet Count 183 K/mcL (140-400); Red Blood Count 4.56 M/mcL (3.82-4.97); Red Cell Distribution Width 13.6 % (11.5-14.5); Segmented Neutrophils % 70.9 %; White Blood Count 8.3 K/mcL (4.3-11.1)
[2021-10-26 03:07] LABS: Protein/Creatinine Ratio,Urine 0.43 mg/mg (0.00-0.20)
[2021-10-26 03:13] LABS: Alanine Aminotransferase 14 Units/L (7-52); Aspartate Amino Transferase 13 Units/L (13-39); BUN/Creatinine Ratio 20 (6-26); Blood Urea Nitrogen 16 mg/dL (6-20); Lactate Dehydrogenase 115 Units/L (140-271); Uric Acid 5.9 mg/dL (2.3-7.6); eGFR For African Americans > 60 (> 60); eGFR For Non-African Americans > 60 (> 60)
[2021-10-26 03:28] LABS: Bacteria,Urine Few per hpf (None-Few); Bilirubin,Urine Negative (Negative); Blood,Urine Negative (Negative); Clarity,Urine Clear (Clear); Color,Urine Yellow (Yellow); Glucose,Urine (UA) Normal (Normal); Ketones,Urine Trace mg/dL (Negative); Leukocyte Esterase,Urine Negative (Negative); Mucus,Urine Few per lpf (None-Few); Nitrite,Urine Negative (Negative); Protein,Urine 200 mg/dL (Neg-Trace); Specific Gravity,Urine > 1.030 (1.010-1.025); Squamous Epithelial Cell,Urine Moderate per hpf (None-Few); WBC,Urine 0-3 per hpf (0-3)
[2021-10-26] MEDS ORDERED: Acetaminophen/Butalbital/CaffeineTABLET PO ONE (03:34)
== END 2021-10-26 07:21 | disposition home or self-care (01) ==
LOC: 1NENULAB
PROVIDERS: ADMIT Obstetrics & Gynecology; ATTEND Obstetrics & Gynecology

== ENCOUNTER 2021-11-01 19:14 | Inpatient (IN) ==
[2021-11-01] MEDS ORDERED: *HR* Labetalol 20 MG/4 ML SYRINGE IVP PRN (20:29)
[2021-11-01] MEDS ORDERED: Calcium Gluconate 1,000 MG/10 ML VIAL IVP PRN (20:29)
[2021-11-01] MEDS ORDERED: Magnesium Sulf 20 gm/SW 500mL 20 GM/500 ML IV.SOLN IVC SCH (20:30)
[2021-11-01] MEDS ORDERED: Magnesium Sulf 20 gm/SW 500mL 4 GM/100 ML BAG IV ONE (20:34)
[2021-11-01] MEDS ORDERED: EPHEDrine 50 MG/ML VIAL IVP PRN (20:35)
[2021-11-01] MEDS ORDERED: Ringers Solution, Lactated 1,000 ML IVC SCH (20:45)
[2021-11-01] MEDS ORDERED: Epidural Premix (fent/bupiv) 110 ML EP SCH (20:45)
[2021-11-01] MEDS ORDERED: Ringers Solution, Lactated 1,000 ML ONE (20:50)
[2021-11-01 21:00] LABS: Basophils % 0.2 %; Eosinophils # 0.1 K/mcL (0.0-0.6); Eosinophils % 0.6 %; Hematocrit 40.3 % (35.3-44.9); Hemoglobin 13.3 g/dL (11.5-15.4); Immature Granulocytes % 0.4 % (0-4); Lymphocytes # 1.4 K/mcL (0.6-4.6); Lymphocytes % 15.9 %; Mean Corpuscular Hemoglobin 30.5 pg (28.0-33.3); Mean Corpuscular Volume 92.4 fL (83.0-100.0); Mean Platelet Volume 12.9 fL (9.4-12.4); Monocytes # 0.4 K/mcL (0.0-1.3); Monocytes % 4.7 %; Neutrophils # 7.1 K/mcL (1.6-8.9); Platelet Count 194 K/mcL (140-400); Red Blood Count 4.36 M/mcL (3.82-4.97); Red Cell Distribution Width 13.7 % (11.5-14.5); Segmented Neutrophils % 78.2 %; White Blood Count 9.1 K/mcL (4.3-11.1)
[2021-11-01 21:06] LABS: Protein/Creatinine Ratio,Urine 0.44 mg/mg (0.00-0.20)
[2021-11-01 21:16] LABS: Alanine Aminotransferase 12 Units/L (7-52); Aspartate Amino Transferase 14 Units/L (13-39); BUN/Creatinine Ratio 13 (6-26); Blood Urea Nitrogen 11 mg/dL (6-20); Lactate Dehydrogenase 123 Units/L (140-271); Uric Acid 7.1 mg/dL (2.3-7.6); eGFR For African Americans > 60 (> 60); eGFR For Non-African Americans > 60 (> 60)
[2021-11-01] MEDS ORDERED: *HR* Labetalol 20 MG/4 ML SYRINGE IVP ONE (21:28)
[2021-11-01] MEDS ORDERED: Oxytocin 30 UNIT/503 ML BAG IVC SCH (22:30)
[2021-11-02] MEDS ORDERED: Ondansetron 4 MG/2 ML VIAL IVP PRN
[2021-11-02] MEDS: Magnesium Sulf 20 gm/SW 500mL 20 GM/500 ML IV.SOLN IVC SCH ×2 (05:30→16:01)
[2021-11-02] MEDS ORDERED: miSOPROStoL 100 MCG TABLET RC ONE (05:30)
[2021-11-02 05:45] LABS: Influenza A PCR Negative (Negative); Influenza B PCR Negative (Negative); Resp. Syncytial Virus PCR Negative (Negative); SARS-CoV-2 by PCR (In House) Negative (Negative)
[2021-11-02] MEDS ORDERED: Lanolin 7 G OINT...G. TP PRN (06:24)
[2021-11-02] MEDS ORDERED: Calcium Gluconate 1,000 MG/10 ML VIAL IVP PRN (06:24)
[2021-11-02] MEDS ORDERED: Ondansetron ODT 4 MG TAB.RAPDIS SL PRN (06:24)
[2021-11-02] MEDS ORDERED: Benzocaine/Menthol 56 GM AEROSOL SPRAY TP PRN (06:24)
[2021-11-02] MEDS ORDERED: Oxytocin 30 UNIT/503 ML BAG IVC SCH (06:24)
[2021-11-02] MEDS ORDERED: Measles/Mumps/Rubella Vacc 0.5 ML VIAL SQ PRN (06:24)
[2021-11-02] MEDS: Ibuprofen 600 MG TABLET PO SCH ×3 (06:35→20:04)
[2021-11-02] MEDS: Acetaminophen 325 MG TABLET PO SCH ×3 (06:35→20:03)
[2021-11-02] MEDS: Prenatal Vit/FA 1 EACH TABLET PO SCH (07:55)
[2021-11-03] MEDS: Ibuprofen 600 MG TABLET PO SCH ×4 (01:51→21:01)
[2021-11-03] MEDS: Acetaminophen 325 MG TABLET PO SCH ×4 (01:51→21:01)
[2021-11-03 06:52] LABS: Basophils % 0.3 %; Eosinophils # 0.1 K/mcL (0.0-0.6); Eosinophils % 1.4 %; Hematocrit 32.8 % (35.3-44.9); Immature Granulocytes % 0.5 % (0-4); Lymphocytes # 1.7 K/mcL (0.6-4.6); Lymphocytes % 28.1 %; Mean Corpuscular HGB Conc 33.8 g/dL (31.6-35.5); Mean Corpuscular Hemoglobin 31.4 pg (28.0-33.3); Mean Corpuscular Volume 92.7 fL (83.0-100.0); Mean Platelet Volume 12.3 fL (9.4-12.4); Monocytes # 0.3 K/mcL (0.0-1.3); Monocytes % 5.3 %; Neutrophils # 3.8 K/mcL (1.6-8.9); Platelet Count 157 K/mcL (140-400); Red Blood Count 3.54 M/mcL (3.82-4.97); Red Cell Distribution Width 14.1 % (11.5-14.5); Segmented Neutrophils % 64.4 %; White Blood Count 5.9 K/mcL (4.3-11.1)
[2021-11-03 06:57] LABS: Hemoglobin 11.1 g/dL (11.5-15.4)
[2021-11-03 07:11] LABS: Alanine Aminotransferase 9 Units/L (7-52); Aspartate Amino Transferase 13 Units/L (13-39); Uric Acid 6.3 mg/dL (2.3-7.6); eGFR For African Americans > 60 (> 60); eGFR For Non-African Americans > 60 (> 60)
[2021-11-03] MEDS: Prenatal Vit/FA 1 EACH TABLET PO SCH (08:57)
[2021-11-04 03:44] VITALS: TEMP 97.7
[2021-11-04 08:35] VITALS: BP 136/82; PULSE 87; O2SAT 98
[2021-11-04] MEDS: Prenatal Vit/FA 1 EACH TABLET PO SCH (08:51)
== END 2021-11-04 14:26 | disposition home or self-care (01) | DRG 560 ==
LOC: 1NENULAB → 1NENUOBS 11-02 06:21
PROVIDERS: ADMIT Obstetrics & Gynecology; ATTEND Obstetrics & Gynecology